=== PATIENT | female | born 1960 | race Caucasian/White ===

== ENCOUNTER 2018-10-18 17:32 | Emergency (ER) | payer OTHER ==
[~2018-10-18] VITALS: Ht 165.1 cm; Wt 63.6 kg
[2018-10-18] MEDS ORDERED: METHOCARBAMOL 500 MG TABLET PO ONE (19:30)
[2018-10-18] MEDS ORDERED: LIDOCAINE 5% TRANSDERMAL PATCH TD ONE (19:30)
[2018-10-18] MEDS ORDERED: IBUPROFEN 600 MG TABLET PO ONE (19:30)
[2018-10-18 19:40] VITALS: BP 128/84
== END 2018-10-18 19:48 | disposition home or self-care (01) ==
LOC: EMS 17:33
DX: M54.6 Pain in thoracic spine (principal); R03.0 Elevated blood-pressure reading, without diagnosis of hypertension; Z90.710 Acquired absence of both cervix and uterus; V43.53XA Car driver injured in collision with pick-up truck in traffic accident, initial encounter; Y93.89 Activity, other specified; Y92.488 Other paved roadways as the place of occurrence of the external cause; Y99.8 Other external cause status